=== PATIENT | female | born 2000 | race Two or more races ===

== ENCOUNTER 2024-12-08 18:12 | Emergency (ER) | payer MEDICAID ==
[~2024-12-08] VITALS: Ht 149.9 cm; Wt 70.2 kg
[2024-12-08] MEDS: FAMOTIDINE 20 MG TAB PO ONE (19:17)
[2024-12-08] MEDS: DexAMETHasone SOD PHOS 10MG/1ML VIAL INJ IM ONE (19:17)
[2024-12-08] MEDS: diphenhdrAMINE HCL 25 MG CAP PO ONE (19:18)
[2024-12-08 19:22] VITALS: BP 124/72; PULSE 75; RESP 17; TEMP 98.3; O2SAT 95
--- NOTE | 2024-12-08 19:23 | ED.PDOC ---
HPI Allergic reaction HPI Comments 24 y/o F presents with 3x hour history of generalized red rash. Patient has no significant medical or known allergy history. She reports on sudden and unprovoked onset, with no new routine, item or medication use, or food consumption. Patient denies being , currently, alongside with having any throat pain, shortness of breath, fever, chills, or further associated symptoms. Chief Complaint: Rash Time Seen by MD: 18:45 Primary Care Provider: [facility] Reviewed Notes: Nurses Notes, Medications, Allergies Allergies: Coded Allergies: NO KNOWN ALLERGIES (Unverified , 12/08/24) Home Meds Active Scripts Diphenhydramine Hcl (Benadryl Allergy) 25 Mg Tab, 25 MG PO TIDPRN PRN for 4 Days, #12 TAB Prov:MORRIS DOUGLASS MD 12/08/24 Prednisone (Prednisone) 20 Mg Tab, 20 MG PO DAILY for 4 Days, #4 MG Prov:MORRIS DOUGLASS MD 12/08/24 Information Source: Patient Mode of Arrival: Ambulatory Review of Systems: REVIEW OF SYSTEMS: No fever, no chills, or fatigue HEENT: No sore throat, no earache, no congestion, no neck pain. Cardiac: No chest pain. No palpitations. Lungs: No shortness of breath, no cough. GI: No nausea, no vomiting, no diarrhea, no constipation, no abdominal pain : No dysuria, frequency, or urgency. No hematuria. Musculoskeletal: No joint pain , no joint swelling, no extremity edema. Skin: Positive Rash, no itching. Neuro: No headache, no dizziness, no weakness Vital Signs Vital Signs Date Time Temp Pulse Resp B/P (MAP) Pulse Ox O2 Delivery O2 Flow Rate FiO2 12/08/24 19:22 98.3 75 17 124/72 (89) 95 98.3 12/08/24 19:22 Room Air Physical Exam General: Awake, alert and oriented. No acute distress. Skin: Generalized erythematous, hive-like rash. Skin is warm, dry and intact. Appropriate color for ethnicity. HEENT: The head is normocephalic and atraumatic. Conjunctivae are clear without exudates or hemorrhage. Sclera is non-icteric. EOM are intact. No signs of nystagmus. Eyelids are normal in appearance without swelling or lesions. Oral mucosa is pink and moist. NO POSTERIOR PHARYNGEAL EDEMA OR ERYTHEMA. Neck: The neck is supple with normal range of motion. No JVD. Cardiac: Heart rate and rhythm are normal. No murmurs, gallops, or rubs are auscultated. Respiratory: No signs of respiratory distress. Lung sounds are clear in all lobes bilaterally without rales, rhonchi, or wheezes. No stridor. Abdominal: Abdomen is soft, non-tender without distention, guarding or rigidity. Bowel sounds are present and normoactive in all four quadrants. Extremities: Upper and lower extremities are atraumatic in appearance without deformity or edema. Neurological: The patient is awake, alert and oriented to person, place, and time with normal speech. Speech is clear. There is no facial asymmetry. Psychiatric: Appropriate mood and affect. Good judgement and insight. 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 Was a procedure done?: No Differential diagnosis (all) Differential Diagnosis: Anaphylaxis, Angioedema, Bronchospasm, Contact Dermatitis, Drug Reaction, Urticaria, Other X-Ray, Labs, Meds, VS Vital Signs Date Time Temp Pulse Resp B/P (MAP) Pulse Ox O2 Delivery O2 Flow Rate FiO2 12/08/24 19:22 98.3 75 17 124/72 (89) 95 98.3 12/08/24 19:22 75 17 95 Room Air 12/08/24 18:20 98.8 86 18 124/78 (93) 95 98.8 Current Medications Medications (Trade) Dose Ordered Sig/Robert Route Start Time Stop Time Status Last Admin Dexamethasone Sodium Phosphate (Decadron Injection) 10 mg ONCE ONCE IM 12/08/24 19:00 12/08/24 19:01 DC 12/08/24 19:17 Diphenhydramine HCl (Benadryl Capsule) 50 mg ONCE ONCE PO 12/08/24 19:00 12/08/24 19:01 DC 12/08/24 19:18 Famotidine (Pepcid Tablet) 40 mg ONCE ONCE PO 12/08/24 19:00 12/08/24 19:01 DC 12/08/24 19:17 Time of 1ST Reevaluation: 19:15 Reevaluation 1ST: Unchanged Patient Education/Counseling: Treatment, Need For Follow Up Family Education/Counseling: No Family Present SEPSIS Sepsis Screen Date sepsis recognized/suspect: Dec 08, 2024 Time Sepsis recognized/suspect: 1814 Recent Procedure: No On Antibiotic Therapy: No Respiratory Rate >20: No Heart Rate >90: No Temp<36 C (96.8 F) or >38.3 C: No SBP <90 or MAP <65 mmHG: No New Acute Mental Status Change: No Is the patient on CPAP, BIPAP,: No Vital Signs Date Time Temp Pulse Resp B/P (MAP) Pulse Ox O2 Delivery O2 Flow Rate FiO2 12/08/24 19: 98.3 75 17 124/72 (89) 95 98.3 12/08/24 19:22 75 17 95 Room Air 12/08/24 18:20 98.8 86 18 124/78 (93) 95 98.8 Medications Medications Dose Ordered Sig/Robert Route Start Time Stop Time Status Last Admin Dose Admin Dexamethasone Sodium Phosphate 10 mg ONCE ONCE IM 12/08/24 19:00 12/08/24 19:01 DC 12/08/24 19:17 Diphenhydramine HCl 50 mg ONCE ONCE PO 12/08/24 19:00 12/08/24 19:01 DC 12/08/24 19:18 Famotidine 40 mg ONCE ONCE PO 12/08/24 19:00 12/08/24 19:01 DC 12/08/24 19:17 Departure 1 Departure Time of Disposition: 20:10 Impression: Primary Impression: Allergic reaction Disposition: HOME / SELF CARE / HOMELESS Condition: Poor Additional Instructions: ED DISCHARGE INSTRUCTIONS INSTRUCTIONS: PLEASE READ ALL INSTRUCTIONS PROVIDED IN THIS PACKET CAREFULLY. START TAKING PREDNISONE TOMORROW. YOU MAY TAKE BENADRYL TODAY NEEDED FOR ITCHING OR RASH. ALTHOUGH YOU HAVE BEEN DISCHARGED FROM THE EMERGENCY DEPARTMENT, THIS DOES NOT MEAN THAT YOU HAVE A "CLEAN BILL OF HEALTH". NO DEFINITIVE DIAGNOSIS FOR YOUR SYMPTOMS HAS BEEN MADE TODAY. IT IS POSSIBLE THAT YOU ARE IN THE PROCESS OF DEVELOPING A SERIOUS ILLNESS. THIS IS WHY YOU MUST RETURN TO THE ED WITHOUT FAIL IF ANY NEW OR WORSENING SYMPTOMS (ESPECIALLY IF YOUR SYMPTOMS INCLUDE CHEST PAIN, TROUBLE BREATHING, ABDOMINAL PAIN, FEVER, HEADACHE, CONFUSION, TROUBLE SEEING, OR TROUBLE WALKING) IT IS ALSO VERY IMPORTANT THAT YOU SEE A PRIMARY CARE DOCTOR WITHIN THE NEXT 3-5 DAYS TO FOLLOW UP. IF YOU ARE UNABLE TO GET AN APPOINTMENT, RETURN TO THE ED FOR RE-EVALUATION. ALLERGIC REACTION: CARE INSTRUCTIONS AN ALLERGIC REACTION IS AN EXCESSIVE RESPONSE FROM YOUR IMMUNE SYSTEM TO A MEDICINE, CHEMICAL, FOOD, INSECT BITE, OR OTHER SUBSTANCE. A REACTION CAN RANGE FROM MILD TO LIFE-THREATENING. SOME PEOPLE HAVE A MILD RASH, HIVES, AND ITCHING OR STOMACH CRAMPS. IN SEVERE REACTIONS, SWELLING OF YOUR TONGUE AND THROAT CAN CLOSE UP YOUR AIRWAY SO THAT YOU CANNOT BREATHE. FOLLOW-UP CARE IS A BRIGHT PART OF YOUR TREATMENT AND SAFETY. BE SURE TO MAKE AND GO TO ALL APPOINTMENTS, AND CALL YOUR DOCTOR IF YOU ARE HAVING PROBLEMS. IT'S ALSO A GOOD IDEA TO KNOW YOUR TEST RESULTS AND KEEP A LIST OF THE MEDICINES YOU TAKE. HOW CAN YOU CARE FOR YOURSELF AT HOME? IF YOU KNOW WHAT CAUSED YOUR ALLERGIC REACTION, BE SURE TO AVOID IT. YOUR ALLERGY MAY BECOME MORE SEVERE EACH TIME YOU HAVE A REACTION. TAKE AN [id number] ANTIHISTAMINE, SUCH CETIRIZINE (ZYRTEC) OR LORATADINE (CLARITIN), TO TREAT MILD SYMPTOMS. READ AND FOLLOW DIRECTIONS ON THE LABEL. SOME ANTIHISTAMINES CAN MAKE YOU FEEL SLEEPY. DO NOT GIVE ANTIHISTAMINES TO A CHILD UNLESS YOU HAVE CHECKED WITH YOUR DOCTOR FIRST. MILD SYMPTOMS INCLUDE SNEEZING OR AN ITCHY OR RUNNY NOSE; AN ITCHY MOUTH; A FEW HIVES OR MILD ITCHING; AND MILD NAUSEA OR STOMACH DISCOMFORT. DO NOT SCRATCH HIVES OR A RASH. PUT A COLD, MOIST TOWEL ON THEM OR TAKE COOL BATHS TO RELIEVE ITCHING. PUT ICE PACKS ON HIVES, SWELLING, OR INSECT STINGS FOR 10 TO 15 MINUTES AT A TIME. PUT A THIN CLOTH BETWEEN THE ICE PACK AND YOUR SKIN. DO NOT TAKE HOT BATHS OR SHOWERS. THEY WILL MAKE THE ITCHING WORSE. YOUR DOCTOR MAY PRESCRIBE AN EPINEPHRINE MEDICINE, SUCH AN EPINEPHRINE SHOT O R NASAL SPRAY, TO CARRY WITH YOU IN CASE YOU HAVE A SEVERE REACTION. LEARN HOW TO GIVE YOURSELF THE MEDICINE AND KEEP IT WITH YOU AT ALL TIMES. MAKE SURE IT IS NOT . GO TO THE EMERGENCY ROOM EVERY TIME YOU HAVE A SEVERE REACTION, EVEN IF YOU HAVE USED YOUR EPINEPHRINE MEDICINE AND ARE FEELING BETTER. SYMPTOMS CAN COME BACK AFTER USING THE MEDICINE. WEAR MEDICAL ALERT JEWELRY THAT LISTS YOUR ALLERGIES. YOU CAN BUY THIS AT [employer]OST [employer]. WHEN SHOULD YOU CALL FOR HELP? USE AN EPINEPHRINE MEDICINE, SUCH AN EPINEPHRINE SHOT OR NASAL SPRAY, IF: YOU THINK YOU ARE HAVING A SEVERE ALLERGIC REACTION. YOU HAVE SYMPTOMS IN MORE THAN ONE BODY AREA, SUCH MILD NAUSEA AND AN ITCHY MOUTH. AFTER GIVING AN EPINEPHRINE MEDICINE, CALL 911, EVEN IF YOU FEEL BETTER. CALL 911 ANYTIME YOU THINK YOU MAY NEED EMERGENCY CARE. FOR EXAMPLE, CALL IF: YOU HAVE SYMPTOMS OF A SEVERE ALLERGIC REACTION. THESE MAY INCLUDE: SUDDEN RAISED, RED AREAS (HIVES) ALL OVER YOUR BODY. SWELLING OF THE THROAT, MOUTH, LIPS, OR TONGUE. TROUBLE BREATHING. PASSING OUT (LOSING CONSCIOUSNESS). OR YOU MAY FEEL VERY LIGHTHEADED OR SUDDENLY FEEL WEAK, CONFUSED, OR RESTLESS. SEVERE BELLY PAIN, NAUSEA, VOMITING, OR DIARRHEA. CALL YOUR DOCTOR NOW OR SEEK IMMEDIATE MEDICAL CARE IF: YOU HAVE SYMPTOMS OF AN ALLERGIC REACTION, SUCH : A RASH OR HIVES (RAISED, RED AREAS ON THE SKIN). ITCHING. SWELLING. MILD BELLY PAIN OR NAUSEA. WATCH CLOSELY FOR CHANGES IN YOUR HEALTH, AND BE SURE TO CONTACT YOUR DOCTOR IF: YOU DO NOT GET BETTER EXPECTED. CREDITS FOR ALLERGIC REACTION: CARE INSTRUCTIONS CURRENT OF: APRIL 12, 2024 AUTHOR: [employer] STAFF CLINICAL REVIEW BOARD ALL [employer] EDUCATION IS REVIEWED BY A TEAM THAT INCLUDES PHYSICIANS, NURSES, ADVANCED PRACTITIONERS, REGISTERED DIETICIANS, AND OTHER HEALTHCARE PROFESSIONALS e-Prescriptions Diphenhydramine Hcl (Benadryl Allergy) 25 Mg Tab 25 MG PO TIDPRN PRN for 4 Days, #12 TAB Prov: MORRIS DOUGLASS MD 12/08/24 Prednisone (Prednisone) 20 Mg Tab 20 MG PO DAILY for 4 Days, #4 MG Prov: MORRIS DOUGLASS MD 12/08/24 Comments 24-year-old female with generalized rash. Acute allergic reaction, likely urticaria. Suspected trigger unknown. Patient has stable vital signs. There was no sign of anaphylaxis (no airway involvement, no severe swelling of lips or tongue, no respiratory distress or stridor). Patient is alert and oriented able to follow instructions. The patient has a rash with no systemic involvement including no vomiting, dizziness or hypotension. Patient is felt stable for discharge home with glucocorticoid in antihistamine. Patient is advised to monitor for and return with any worsening symptoms and follow up with the primary care provider promptly for re-evaluation. - I reviewed the following notes from the pt's past medical encounters: N/A The following tests were ordered, and results were reviewed by me: (See diagnostic results section) The following test were independently interpreted by me: N/A Additional information was gathered from interviewing the following independent historians: N/A I reviewed and agreed with the following test results read by other providers: N/A I discussed treatments and results with patient Decision regarding hospitalization or escalation of hospital level of care: Risks and benefits of admission for further treatment of patient's condition was considered however due to patient's stable condition patient will be discharged to follow up closely or return to care for worsening of condition or inability to follow up. Critical Care Note Critical Care Time?: No Stability Stability form required: No Heart Score Heart Score: Heart Score Response (Comments) Value History N/A 0 EKG N/A 0 Age N/A 0 Risk Factors N/A 0 Troponin N/A 0 Total 0 I personally scribed for MORRIS DOUGLASS MD ([email or web address]) on 12/08/24 at 19:23. Electronically submitted by Robb Gonzalez ([email or web address]). MORRIS DOUGLASS MD Dec 08, 2024 19:23
[2024-12-08] MEDS ORDERED: PRED20TA2 PO (20:11)
[2024-12-08] MEDS ORDERED: DIPH25TA54 PO (20:11)
== END 2024-12-08 20:30 | disposition home or self-care (01) ==
LOC: ER 18:12
DX: T78.40XA Allergy, unspecified, initial encounter (principal); Z79.899 Other long term (current) drug therapy; X58.XXXA Exposure to other specified factors, initial encounter
CPT/HCPCS: 96372; 99283; J1100